=== PATIENT | female | born 1985 | race Caucasian/White ===

== ENCOUNTER → 2019-11-27 | Outpatient (CLI) | payer OTHER ==
[~2019-11-27] MED LIST: ALBUTEROL2.5 MG/0.5 INH; CIPROFLOXACIN500 M1 PO; COMBIVENT INH; FLAGYL500 MG PO; IBUPROFEN 800800 MG PO; MIRALAX255 GM PO; NAPROSYN500 MG PO; NOHOMEMEDICATIONS; NORCO 5-325 TA1 EACH PO; PHENTERMINE H37.5 MG PO; PREDNISONE 20 M20 M1 PO; PROZAC; PROZAC 20 MG20 MG PO; PROZAC40 MG PO; ULTRAM 50MG TAB50 MG PO; VICODIN 5-5001 EACH PO; WELLBUTRIN 75 M75 M1 PO; ZPAK PO
== END ==
LOC: ULTRA 16:05
DX: E05.90 Thyrotoxicosis, unspecified without thyrotoxic crisis or storm (principal); E04.9 Nontoxic goiter, unspecified